=== PATIENT | female | born 1990 | race Caucasian/White ===

== ENCOUNTER 2016-08-27 16:08 | Emergency (ER) | payer OTHER ==
[2016-08-27 16:08] VITALS: O2SAT 100
[2016-08-27 16:44] VITALS: BP 119/83; PULSE 71; RESP 16; TEMP 97.6
[2016-08-27 16:46] LABS: APPEARANCE,URINE Slightly Cloudy; BILIRUBIN,URINE NEGATIVE (NEGATIVE); COLOR,URINE Yellow; GLUCOSE, URINE (UA) NEGATIVE (NEGATIVE); KETONES,URINE NEGATIVE (NEGATIVE); LEUKOCYTE ESTERASE ,URINE 1+ (NEGATIVE); NITRATE,URINE NEGATIVE (NEGATIVE); OCCULT BLOOD,URINE NEGATIVE (NEG-TRACE); UROBILINOGEN,URINE 0.2 (0.2-1.0 EU)
[2016-08-27 17:02] LABS: RBC,URINE NEG (0-3AV/HPF)
== END 2016-08-27 17:28 | disposition home or self-care (01) ==
LOC: ED 16:08
DX: N39.0 Urinary tract infection, site not specified (principal)
CPT/HCPCS: 81001; 87077; 87088; 87186; 99282